=== PATIENT | female | born 1940 | race Caucasian/White ===

== ENCOUNTER 2022-03-08 11:04 | Outpatient (CLI) | payer MEDICARE, SELFPAY | END 2022-03-08 11:05 | disposition home or self-care (01) | LOC: NFLDREF 11:07 | PROVIDERS: PCP Internal Medicine; Visit Provider Internal Medicine | DX: E03.9 Hypothyroidism, unspecified (principal) | CPT/HCPCS: 84439; 84443 ==

== ENCOUNTER 2022-06-22 09:15 | Outpatient (RCR) | payer MEDICARE, SELFPAY ==
--- NOTE | 2022-06-02 15:25 | PT.OPEX ---
[facility] [place] [facility] PT [facility] Outpatient Eval Start: 06/01/22 15:36 Freq: Status: Active Protocol: Document 06/01/22 15:36 DEANNE (Rec: 06/01/22 15:38 DEANNE [id number]) E-signed By Tino Monahan DPT, MS Physical Therapy Outpatient Evaluation Insurance Information Recert Due Date 08/30/22 Insurance Name Medicare B,[facility] [facility] Medical Diagnosis Presence of artificial knee joint, bilateral. Treating Diagnosis R knee pain, imbalance, gait dysfunction, deconditioning, and B (R>L) LE weakness Subjective Subjective Pt is an 81 y.o. female with a PMH of dementia who presents to PT with c/o R medial knee pain following a fall in late March 2022. Describes falling onto her R knee then hitting the side of her head after getting up too quick to go to the bathroom due to lightheadedness. Hx of dizziness with a long hx of low BP. Lives in an assisted living apartment in [place] with an elevator to her [address]nd [place] apartment. Uses a cane on her R to help with balance but feels like her R knee gives way on her randomly throughout the day, especially when her legs are tired. PSH of B TKA in 2003 and L PAUL ~10 years ago. AGGR factors: standing, walking, carrying objects. ALLEV factors: rest. Pt?s daughter attended today?s session. Pain Comments 04/15 Current Work Status Retired Preferred Name Cristy Precautions Treatment Precautions/Contraindications Dementia Therapy Limitations/Systems Review Cognition Objective Functional Test Performed & Score LEFS: 20 Assessment Assessment/Impression Objectively pt displays imbalance, gait dysfunction, deconditioning, and B (R>L) LE weakness. Corrected pt to use her SPC on the L with significant improvement in quality of gait following. Medial R knee pain likely due to weakness, imbalance and gait compensations using her SPC on the R. Instructed pt in seated, standing and supine exercises with fatigue but good response to all exercises with fatigue following today? s session. She will benefit greatly from continued skilled therapy to address these limitations. Primary Functional Limitations Standing, walking, carrying objects. Plan of Care Rehabilitation Potential Excellent Physical Therapy Goals Short-term goals to be completed in 4 weeks: 1. Pt will display improved B LE strength as evidenced by performing >8 SLR of good quality to improve quality of gait. 2. Pt will be able to walk for >500 feet with a SPC with R knee pain <2/10 to safely attend medical appointments and amb in her apartment. Long-term goals to be completed in 10 weeks: 1. Pt will be independent and compliant with HEP 2. Pt will display improved B hip flex, ABD and ext strength of >4/5 to improve quality of gait. 3. Pt will display an improved TUG test with a SPC <13 sec to decrease falls risk. 4. Pt will report >50% improvement in LEFS questionnaire to significantly improve eve to daily activities. Coordination/Communication With Referral Source Treatment Plan/Direct Interventions Neuromuscular Re-ed, Therapeutic Exercises Frequency/Duration 1x per week for at least 6-10 visits, decreasing visit frequency as able. Patient Will Be Discharged From Therapy Completion of LTG(s),Skills Plateau,Independent w/HEP, Independently Progressing Evaluation Billing Untimed Code Treatment Minutes 28 Complexity Moderate Certification Information Initial Certification Date 06/01/22 Ending Certification Date 08/30/22 Provider Signature Shows Agreement With POC & Medical Necessity Physician Signature & Date Requested Please Sign/Date Here Physician Comment/Change : Physician NPI Number #
== END 2022-06-22 11:17 | disposition home or self-care (01) ==
PROVIDERS: PCP Internal Medicine; Visit Provider Physician Assistant Surgical
DX: M25.561 Pain in right knee (principal); R26.9 Unspecified abnormalities of gait and mobility; Z96.653 Presence of artificial knee joint, bilateral; Z51.89 Encounter for other specified aftercare
CPT/HCPCS: 97110; 97162

== ENCOUNTER 2023-12-29 17:45 | Emergency (ER) | payer MEDICARE, SELFPAY ==
--- NOTE | 2023-12-29 17:53 | ED.GENADULT ---
HPI - General Adult General Date Seen: 12/29/23 Chief complaint: Chest Pain Stated complaint: Dizziness Time Seen by Provider: 12/29/23 17:53 History of Present Illness HPI narrative: 83 yo F with a history of asthma, sleep apnea, elevated BMI, dementia, colon polyps, bilateral total knee replacements, dementia. She is brought to the ER today from her assisted living by EMS. She is accompanied by her daughter and son-in-law. History is limited because the patient has dementia and cannot recall the events that happened this afternoon. History is obtained predominantly from her daughter. She lives in an assisted living in [place]. She lives close to her daughter and they do talk on the phone fairly often. Daughter notes that she has had a couple of dizzy spells earlier this week, 1 on Monday, another on Monday but they were fairly mild. Further details are not not forthcoming. We do not really know what kind of dizziness she had, what brought it on, how long it lasted, or why it got better. It sounds like she did not have any known episodes of dizziness yesterday. As far as he know she was fine this morning. This afternoon she was with some a other folks at her assisted living and was playing cards. She began to complain of dizziness sometime late this afternoon. She had someone take her back to her room. She became nauseous and threw up (apparently nonbloody). She was able to call her daughter who came over to be with her. Daughter found that she had thrown up and noted that she was quite dizzy and quite unsteady. Daughter helped her into the shower to get her cleaned up from the vomiting but she was having trouble standing up in the shower. She was not really lightheaded and did not seem like she is going to pass out but more that she was just off balance. Daughter did not really see any facial droop. No obvious focal weakness. She did not report any focal numbness. She did not have slurred speech. She did not complain of chest pain or palpitations to her daughter. She vomited a couple of times. No report of abdominal pain. Now that she is here in the ER the patient says she is feeling better. She does not recall the previous dizzy spell. Related Data Home Medications ?Medication ?Instructions ?Recorded ?Confirmed acetaminophen 500 mg tablet 500 mg PO Q6H PRN 03/08/22 05/03/23 (Tylenol Extra Strength) multivitamin with minerals-folic 1 tab PO Q24H 03/08/22 05/03/23 acid 120 mcg chewable tablet (Centrum Adult 50 Plus Fresh-Fruity) vit C 250 mg-vit E 90 mg-zinc 40 1 tab PO BID 03/08/22 05/03/23 mg-copper 1 [id number] capsule (PreserVision AREDS-2) zafirlukast 20 mg tablet 20 mg PO BID 03/08/22 05/03/23 Previous Rx's ?Medication ?Instructions ?Recorded epinephrine 0.3 mg/0.3 mL 0.3 ml IM ONCE #2 ea 03/08/22 injection, auto-injector albuterol sulfate 90 mcg/actuation 2 inh inhalation Q6-8H PRN 03/17/22 aerosol inhaler (ProAir HFA) shortness of breath or wheezing #8.5 grams levothyroxine 100 mcg tablet 100 mcg PO QDAY #90 tabs 03/17/22 donepezil 5 mg tablet 5 mg PO QDAY #90 tabs 04/20/22 meclizine 12.5 mg tablet 12.5 mg PO TID PRN #10 tabs 12/29/23 Allergies Allergy/AdvReac Type Severity Reaction Status Date / Time ampicillin Allergy Verified 12/29/23 17:58 bee pollen Allergy Verified 12/29/23 17:58 sulfite Allergy Verified 12/29/23 17:58 Tetanus Vaccines and Toxoid Allergy Verified 12/29/23 17:58 flushot Allergy Uncoded 05/03/23 09:47 [facility] Medical History (Updated 12/29/23 @ 20:30 by Milton Hanna MD) POLST (Physician Orders for Life-Sustaining Treatment) ?Z78.9 - Other specified health status (ICD-10) Surgical History (Updated 06/01/22 @ 10:43 by Aubrey Smiley PA-C) History of hammer toe correction ?Z98.890 - Other specified postprocedural states (ICD-10) ?Z87.39 - Personal history of other diseases of the musculoskeletal system and connective tissue (ICD-10) History of bladder repair surgery ?Z98.890 - Other specified postprocedural states (ICD-10) History of appendectomy ?Z90.49 - Acquired absence of other specified parts of digestive tract (ICD-10) History of left inguinal hernia repair ?Z98.890 - Other specified postprocedural states (ICD-10) ?Z87.19 - Personal history of other diseases of the digestive system (ICD-10) History of tonsillectomy ?Z90.89 - Acquired absence of other organs (ICD-10) History of cataract surgery ?Z98.49 - Cataract extraction status, unspecified eye (ICD-10) History of total hysterectomy with bilateral salpingo-oophorectomy (BSO) ?Z90.710 - Acquired absence of both cervix and uterus (ICD-10) ?Z90.722 - Acquired absence of ovaries, bilateral (ICD-10) ?Z90.79 - Acquired absence of other genital organ(s) (ICD-10) History of total knee replacement ?Z96.659 - Presence of unspecified artificial knee joint (ICD-10) History of hip replacement ?Z96.649 - Presence of unspecified artificial hip joint (ICD-10) Family History Mother Diabetes Father Parkinson's disease COPD (chronic obstructive pulmonary disease) Daughter Systemic lupus erythematosus Other Family history of malignant neoplasm of colon in first degree relative diagnosed when younger than 60 years of age Social History Smoking Status: Never smoker Little interest or pleasure in doing things: not at all Feeling down, depressed, or hopeless: not at all Exam Narrative: Exam Narrative: Constitutional: Appears well-developed and well-nourished. Alert. Conversant and polite. She complains of my cold hands. She has dementia so cannot provide history. Non toxic. HENT: Head: Atraumatic. Nose: Nose normal. Mouth/Throat: Oral mucosa is clear and moist. no trismus. Pharynx normal. Tonsils symmetric. No tonsillar enlargement, erythema, or exudate. Eyes: Conjunctivae normal. EOM normal. Pupils equal, round, and reactive to light. No scleral icterus. No nystagmus. Neck: Normal range of motion. Neck supple. No tracheal deviation present. Cardiovascular: Normal rate, regular rhythm. No gallop. No friction rub. No murmur heard. Symmetric radial artery pulses Pulmonary/Chest: Effort normal. No stridor. No respiratory distress. No wheezes. No rales. No rhonchi . No tenderness. Abdominal: Soft. Bowel sounds normal. No distension. No mass. No tenderness. No rebound. No guarding. Musculoskeletal: RUE: Normal range of motion. No tenderness. No deformity LUE: Normal range of motion. No tenderness. No deformity RLE: Normal range of motion. No edema. No tenderness. No deformity LLE: Normal range of motion. No edema. No tenderness. No deformity Neurological: Alert and oriented to person, place, and at baseline.. Normal strength. CN II-VII intact. No sensory deficit. GCS eye subscore is 4. GCS verbal subscore is 5. GCS motor subscore is 6. Normal coordination Mental status normal. Attention normal. Alert and oriented x3. GCS 15. Memory normal. Speech fluent. Cognition normal. Cranial Nerves intact II-XII except I did not formally test gag or visual acuity. EOMI. Palate elevates symmetrically and tongue protrudes in the midline. Strength: 5/5 trapezius on the right and left 5/5 deltoid on the right and left 5/5 biceps on the right and left 5/5 triceps on the right and left 5/5 multicraft operator on the right and left 5/5 thumb opposition on the right and left 5/5 finger abduction on the right and left 5/5 hip flexors (L3) on the right and left 5/5 quadriceps (L4) on the right and left 5/5 tibialis anterior on the right and left 5/5 EHL (L5) on the right and left 5/5 gastrocnemius (S1) on the right and left 5/5 hamstring on the right and left Sensation intact to light touch in both upper extremities (C4-T1) Sensation intact to light touch in Both lower extremities (L4-S1). Finger to nose and coordination normal. Gait normal. Skin: Skin is warm and dry. No rash noted. No pallor. Normal capillary refill. Psychiatric: Normal mood. Normal affect. Const: Vital Signs, click to edit/add: Vital Signs - 24 hr 12/29/23 17:55 Temperature 96.4 F L Pulse Rate [Right Pulse Oximeter] 64 Respiratory Rate 18 Blood Pressure [Ri ght Upper Arm] 140/99 H Pulse Oximetry 97 Oxygen Delivery Me thod Room Air Course Vital Signs Vital signs: Initial Vital Signs Respiratory Effort Normal 12/29/23 17:53 Respiratory Depth Normal 12/29/23 17:53 Respiratory Pattern Normal 12/29/23 17:53 Vital Signs Temperature 96.4 F L 12/29/23 17:55 Pulse Rate 64 12/29/23 17:55 Respiratory Rate 18 12/29/23 17:55 Blood Pressure 140/99 H 12/29/23 17:55 Pulse Oximetry 97 12/29/23 17:55 Oxygen Delivery Method Room Air 12/29/23 17:55 Temperature 96.4 F L 12/29/23 17:55 Pulse Rate 64 12/29/23 17:55 Respiratory Rate 18 12/29/23 17:55 Blood Pressure 140/99 H 12/29/23 17:55 Pulse Oximetry 97 12/29/23 17:55 Oxygen Delivery Method Room Air 12/29/23 17:55 Medical Decision Making MDM Narrative Medical decision making narrative: Pleasant [age]-year-old female with dementia brought to the ER today by EMS from her assisted living. She is accompanied by her daughter who provides her history. She has been having episodes of dizziness for the past couple of days and had a fairly intense episode of dizziness lasting several hours this afternoon but is now improved upon arrival to the ER. Differential for her dizziness is quite broad. At this point would favor that this was probably an episode of vertigo. However she has not have any ongoing nystagmus or any obvious focal deficits at this time. Given her age and medical comorbidities we did obtain a noncontrast head CT scan to look for any obvious signs of intracranial hemorrhage or stroke. CT is normal. Certainly MRI would be more sensitive to look for cerebellar or brainstem ischemia. However MRI is not available at this time in the ER in [place]. With no active vertigo symptoms I do not think she needs transfer for emergent MRI right now. Differential would also include lightheadedness. It is possible she had an arrhythmia at home, but she is currently in sinus rhythm in the ER. EKG shows sinus rhythm and no arrhythmia she had not been having any chest pain. Screening EKG to look for ischemia is undetectable. She did have some vomiting associated with her dizziness. She is not having any abdominal pain or tenderness on her exam here in the ER. However consider intra-abdominal pathology. Laboratory workup including LFTs, lipase is normal. Kidney function normal. Electrolytes normal. Urinalysis is normal. Sodium, potassium, electrolytes are normal. Blood sugar normal. Venous lactic acid is borderline elevated at 2.0. She is not febrile. No evidence for infection or sepsis. She received IV fluid bolus 500 mils here in the ER (limited due to current national IV fluids shortage). Hemoglobin is normal. No signs of anemia. Disposition is somewhat difficult. At this point she is asymptomatic. Daughter is concerned with her recurrent episodes of dizziness that she might get dizzy overnight and which could lead to a fall since she lives in an assisted living does not really have adequate supervision. We discussed possible hospitalization. For her part the patient does not want to be hospitalized. Concerned about hospitalization would be that since she has dementia she could develop sundowning and own from area in by minute which would lead to distress for the patient as well as agitation and need for chemical sedation which could cause other side effects. Ultimately the plan we came up with his that will discharge the patient back to her normal living environment and her daughter will stay with her tonight to help assist. This will help give her some measure of safety and protection. However if she has more symptoms or has any concerns, her daughter will help her come back to the ER immediately. Will try a short course of meclizine that she can use as needed for episodes of dizziness. Discussed that we suspect this is vertigo but that the diagnosis is difficult to confirm in this situation, especially with the limitations of the patient's dementia to fully sauce out how the symptoms feel. Patient and her daughter and son-in-law are comfortable plan of care. Lab Data Labs: Lab Results 12/29/23 12/29/23 Range/Units 18:50 19:27 WBC 7.17 (4.50-11.00) K/uL RBC 4.59 (4.00-5.20) m/uL Hgb 14.2 (12.0-16.0) gm/dL Hct 43.6 (33.0-51.0) % MCV 95 (80-100) fL MCH 31 (26-34) pg MCHC 33 (32-36) gm/dL RDW Coeff of Jt 13.2 (11.5-15.5) % Plt Count 228 (140-440) K/uL Neut % (Auto) 73.6 H (42.0-72.0) % Lymph % (Auto) 19.4 L (20-44) % Rich % (Auto) 5.6 (0.0-11.0) % Eos % (Auto) 0.1 (0.0-7.0) % Baso % (Auto) 0.6 (0.0-3.0) % Neut # (Auto) 5.30 (1.7-7.0) K/uL Lymph # (Auto) 1.40 (0.90-2.90) K/uL Rich # (Auto) 0.40 (0.00-0.90) K/UL Eos # (Auto) 0.01 (0.00-0.50) K/uL Baso # (Auto) 0.04 (0.00-0.30) K/uL Abs Immat Gran (auto) 0.05 (0.00-0.30) K/uL Imm/Tot Granulo (auto) 0.7 % Sodium 136 (135-149) mmol/L Potassium 3.6 (3.6-5.1) mmol/L Chloride 98 (96-114) mmol/L Carbon Dioxide 29 (20-32) mmol/L Anion Gap 9 (7-15) mEq/L BUN 18 (7-30) mg/dL Creatinine 0.7 (0.5-1.5) mg/dL Estimated Creat Clear 37.68 Estimated GFR 85 ml/min Glucose 132 H (60-115) mg/dL Lactate 2.0 H (0.5-1.9) mmol/L Calcium 9.4 (8.4-10.6) mg/dL Total Bilirubin 0.4 (0.1-1.5) mg/dL AST 36 H (12-35) U/L ALT 25 (4-35) U/L Alkaline Phosphatase 72 (40-150) U/L Troponin I < 0.01 L (0.01-0.04) ng/mL Total Protein 7.9 (6.0-8.3) g/dL Albumin 4.5 (3.3-5.0) g/dL Lipase 83 (23-300) U/L Urine Color Yellow (Yellow) Urine Appearance Clear (Clear) Urine pH 7.5 (5.0-8.5) Ur Specific [place] 1.015 (1.000-1.030) Urine Protein Negative (Negative) Urine Glucose (UA) Negative (Negative) Urine Ketones Negative (Negative) Urine Blood Negative (Negative) Urine Nitrite Negative (Negative) Urine Bilirubin Negative (Negative) Urine Urobilinogen 0.2 (0.2-1.0) Ur Leukocyte Esterase Negative (Negative) Urine RBC 0-2 (0-2) Urine WBC 0-2 (0-5) Ur Squamous Epith Cells None (None-Few) Urine Bacteria None (None) Imaging Data CT scan - head: Attestation: I have reviewed the pertinent imaging results. Radiologist's impression: IMPRESSION: No acute abnormality. ECG Data Attestation: I personally reviewed and interpreted this ECG as follows: Interpretation: Normal sinus rhythm Rate: 68 WI: 188 QRS axis: Normal axis. No pathologic Q-waves. ST segment/T wave: Nonspecific T-wave flattening. No ST segment elevation or depression. QTc: 489 Discharge Plan Discharge Clinical Impression: Vertigo Patient Disposition: Home w/ Parent or Adult Condition: Stable Instructions: Vertigo (DC), Dizziness (ED) Additional Instructions: As we discussed, please come back to the ER right away if you have any concerns especially if she has more episodes of significant unsteadiness, dizziness, vomiting, or if she has any other new symptoms such as chest pain, abdominal pain, or trouble breathing. Use the medication, Antivert, if needed to help treat if she has episodes of dizziness. Continue on her other regular medications. Please recheck with her regular doctor in 2-3 days, or come back to the ER right away if she has any worsening symptoms or you have any concerns. Activity Level: No Restrictions Discharge Diet: Regular Prescriptions: New meclizine 12.5 mg tablet 12.5 mg PO TID PRNQty: 10 0RF No Action zafirlukast 20 mg tablet 20 mg PO BID Rx Instructions: must be taken on empty stomach, at least 1 hr before or 2 hrs after a meal/food Centrum Adult 50 Fresh-Fruity 120 mcg tablet,chewable 1 tab PO Q24H PreserVision AREDS-2 250-90-40-1 mg capsule 1 tab PO BID acetaminophen [Tylenol Extra Strength] 500 mg tablet 500 mg PO Q6H PRN epinephrine 0.3 mg/0.3 mL auto-injector 0.3 ml IM ONCE Qty: 2 1RF Rx Instructions: as a single dose; may repeat once albuterol sulfate [ProAir HFA] 90 mcg/actuation HFA aerosol inhaler 2 inh inhalation Q6-8H PRN (Reason: shortness of breath or wheezing) Qty: 8.5 5RF levothyroxine 100 mcg tablet 100 mcg PO QDAY Qty: 90 3RF donepezil 5 mg tablet 5 mg PO QDAY Qty: 90 3RF Follow Up/Referrals: Isabel Ghosh MD [Staff Physician] - Stand Alone Forms: [employer] Info Instructions
[2023-12-29 17:55] VITALS: BP 140/99; PULSE 64; RESP 18; TEMP 35.8; O2SAT 97; BMI 29.1
--- NOTE | 2023-12-29 18:13 | CRLHL7_ITS ---
For Patients: As a result of the Century Cures Act, medical imaging exams and procedure reports are released immediately into your electronic medical record. You may view this report before your referring provider. If you have questions, please contact your health care provider. INDICATION: Dizziness and vomiting. TECHNIQUE: Axial noncontrast CT cuts were performed from skull base to the vertex. FINDINGS: There is moderate cerebral loss. There is no intracranial mass, hemorrhage, infarction or contusion. There is no midline shift or transtentorial herniation. The calvarium is intact. The visualized paranasal sinuses and orbits appear normal. IMPRESSION: No acute abnormality. Please note that all CT scans at this facility use dose modulation, iterative reconstruction, and/or weight-based dosing when appropriate to reduce radiation dose to as low as reasonably achievable. Dictated by Wilbur Chavez MD @ 12/29/2023 6:57:19 PM (Electronically Signed)
[2023-12-29 18:58] LABS: Basophils Absolute Auto 0.04 K/uL (0.00-0.30); Basophils Percent Auto 0.6 % (0.0-3.0); Eosinophils Absolute Auto 0.01 K/uL (0.00-0.50); Eosinophils Percent Auto 0.1 % (0.0-7.0); Hematocrit 43.6 % (33.0-51.0); Hemoglobin* 14.2 gm/dL (12.0-16.0); Immature Granulocytes Abs Auto 0.05 K/uL (0.00-0.30); Immature Granulocytes Pct Auto 0.7 %; Lymphocytes Percent Auto 19.4 % (20-44); Mean Corpuscular HGB Conc 33 gm/dL (32-36); Mean Corpuscular Hemoglobin 31 pg (26-34); Mean Corpuscular Volume 95 fL (80-100); Monocytes Percent Auto 5.6 % (0.0-11.0); Neutrophils Percent Auto 73.6 % (42.0-72.0); Platelet Count* 228 K/uL (140-440); RDW Coefficient of Variation % 13.2 % (11.5-15.5); Red Blood Count 4.59 m/uL (4.00-5.20); White Blood Count* 7.17 K/uL (4.50-11.00)
[2023-12-29 19:06] LABS: Slide Review Reflex No
[2023-12-29 19:27] LABS: Chloride* 98 mmol/L (96-114)
[2023-12-29 19:28] LABS: Albumin* 4.5 g/dL (3.3-5.0); Potassium* 3.6 mmol/L (3.6-5.1); Sodium* 136 mmol/L (135-149)
[2023-12-29 19:31] LABS: Alanine Aminotransferase* 25 U/L (4-35); Alkaline Phosphatase* 72 U/L (40-150); Anion Gap 9 mEq/L (7-15); Aspartate Amino Transferase* 36 U/L (12-35); Bilirubin Total* 0.4 mg/dL (0.1-1.5); Blood Urea Nitrogen* 18 mg/dL (7-30); Calcium* 9.4 mg/dL (8.4-10.6); Carbon Dioxide* 29 mmol/L (20-32); Creatinine* 0.7 mg/dL (0.5-1.5); Est. Creatinine Clearance* 37.68; Estimated Glomerular Filt Rate 85 ml/min; Glucose* 132 mg/dL (60-115); Total Protein* 7.9 g/dL (6.0-8.3)
[2023-12-29 19:32] LABS: Lipase* 83 U/L (23-300)
[2023-12-29 19:36] LABS: Appearance Urine Clear (Clear); Bilirubin Urine Negative (Negative); Blood Urine Negative (Negative); Color Urine Yellow (Yellow); Glucose Urine Negative (Negative); Ketones Urine Negative (Negative); Leukocyte Esterase Urine Negative (Negative); Nitrite Urine Negative (Negative); Protein Urine Negative (Negative); Specific Gravity Urine 1.015 (1.000-1.030); Urobilinogen Urine 0.2 (0.2-1.0); pH Urine 7.5 (5.0-8.5)
[2023-12-29 19:43] LABS: Troponin I* < 0.01 ng/mL (0.01-0.04)
[2023-12-29 19:44] LABS: RBC Urine 0-2 (0-2); WBC Urine 0-2 (0-5)
--- NOTE | 2024-01-01 12:27 | ED.NURSE ---
Pt discharge medication Meclizine changed from [facility], to [facility] in [place].
== END 2023-12-29 20:43 | disposition home or self-care (01) ==
PROVIDERS: Emergency Provider Emergency Medicine; Visit Provider Emergency Medicine
DX: R42 Dizziness and giddiness (principal)
CPT/HCPCS: 36415; 70450; 80053; 81001; 83605; 83690; 84484; 85025; 93005; 99284

== ENCOUNTER 2023-12-30 17:05 | Outpatient (CLI) | payer MEDICARE, SELFPAY | END 2023-12-30 17:06 | disposition home or self-care (01) | LOC: AMB 01-04 13:33 | PROVIDERS: Visit Provider Family Medicine | DX: R42 Dizziness and giddiness (principal); R11.2 Nausea with vomiting, unspecified | CPT/HCPCS: A0425; A0427 ==

== ENCOUNTER 2024-09-27 11:14 | Emergency (ER) | payer MEDICARE, SELFPAY ==
--- OUTSIDE RECORDS SUMMARY | 2024-09-27 11:15 | XMS_ITS ---
Author Name Auto Generated, Auto Generated Organization [employer] Functional Status No Results Mental Status No Results Allergies and Intolerances No Known Allergies Problems Active Concerns * Impacted cerumen of right ear* Code: [id number] * Start Date: MonJuly 28 09:15:00 EDT 2024 * End Date: * Text: Reason for Referral
[2024-09-27 11:48] VITALS: BP 129/64; PULSE 70; RESP 18; TEMP 36.3; O2SAT 95; BMI 43.9
--- NOTE | 2024-09-27 11:50 | CRLHL7_ITS ---
For Patients: As a result of the Century Cures Act, medical imaging exams and procedure reports are released immediately into your electronic medical record. You may view this report before your referring provider. If you have questions, please contact your health care provider. INDICATION: FALL IN SHOWER, HIT HEAD. (Sic) COMPARISON: 12/29/2023 TECHNIQUE: CT of the head without intravenous contrast. Please note that all CT scans at this facility use dose modulation, iterative reconstruction, and/or weight-based dosing when appropriate to reduce radiation dose to as low as reasonably achievable. FINDINGS: No acute traumatic injury is identified. No acute infarct. No intracranial mass or mass effect. No hydrocephalus. No intracranial hemorrhage. Redemonstration of chronic bilateral internal capsular lacunar infarcts and clustered lucencies at the base of the left lentiform nucleus consistent with chronic lacunar infarcts or dilated perivascular spaces. RapidAI ASPECTS Score: Not performed/available at the time of dictation. Intact skull base and cranial vault. Visualized orbits are without significant incidental findings. Visualized paranasal sinuses and mastoid air cells are clear. Unremarkable soft tissues. IMPRESSION: 1. No acute traumatic injury is identified. 2. No significant interval findings. 3. Additional findings as above. Please note that all CT scans at this facility use dose modulation, iterative reconstruction, and/or weight-based dosing when appropriate to reduce radiation dose to as low as reasonably achievable. Dictated by Figueroa Tucker MD @ 09/27/2024 12:21:19 PM (Electronically Signed)
--- OUTSIDE RECORDS SUMMARY | 2024-09-27 12:14 | XMS_ITS ---
Author Name Auto Generated, Auto Generated Organization [employer] Functional Status No Results Mental Status No Results Allergies and Intolerances No Known Allergies Problems Active Concerns * Impacted cerumen of right ear* Code: [id number] * Start Date: MonJuly 28 09:15:00 EDT 2024 * End Date: * Text: Reason for Referral
--- NOTE | 2024-09-27 12:27 | ED_ITS ---
HPI - Fall General Chief Complaint: Fall/Minor Trauma Stated Complaint: Fell, hit head Time Seen by Provider: 09/27/24 11:52 History of Present Illness HPI Narrative: Patient is a 84-year-old woman who lives in memory care at the [facility]. She unfortunately fell in the shower today striking her head. She has approximately 3 in laceration on the posterior lateral scalp on the right. She had no loss of consciousness. No fevers no chills no night sweats. She is back at baseline. CT of the head done upon arrival is unremarkable. No other symptoms noted or history available. 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 Previous Rx's ?Medication ?Instructions ?Recorded epinephrine 0.3 mg/0.3 mL 0.3 ml IM ONCE #2 ea 3 injection, auto-injector albuterol sulfate 90 mcg/actuation 2 inh inhalation Q6 -8H PRN 03/17/22 aerosol inhaler (ProAir HFA) shortness of breath or wh eezing #8.5 grams levothyroxine 100 mcg tablet 100 mcg PO QDAY #90 tabs 03/17/22 donepezil 5 mg tablet 5 mg PO QDAY #90 tabs meclizine 12.5 mg tablet 12.5 mg PO TID PRN #10 tabs 12/29/23 Allergies Allergy/AdvReac Type Severity Reaction Status Date / Time ampicillin Allergy Verified 05/15/24 10:30 bee pollen Allergy Verified 05/15/24 10:30 sulfite Allergy Verified 05/15/24 10:30 Tetanus Vaccines and Toxoid Allergy Verified 05/15/24 10:30 flushot Allergy Uncoded 05/15/24 10:30 Review of Systems Status of ROS: Reports: 10 or more systems reviewed and unremarkable except as noted in History and below [facility] Medical History POLST (Physician Orders for Life-Sustaining Treatment) ?Z78.9 - Other specified health status (ICD-10) Surgical History History of hammer toe correction ?Z98.890 - Other specified postprocedural states (ICD-10) ?Z87.39 - Personal history of other diseases of the musculoskeletal system and connective tissue (ICD-10) History of bladder repair surgery ?Z98.890 - Other specified postprocedural states (ICD-10) History of appendectomy ?Z90.49 - Acquired absence of other specified parts of digestive tract (ICD- 10) History of left inguinal hernia repair ?Z98.890 - Other specified postprocedural states (ICD-10) ?Z87.19 - Personal history of other diseases of the digestive system (ICD-10) History of tonsillectomy ?Z90.89 - Acquired absence of other organs (ICD-10) History of cataract surgery ?Z98.49 - Cataract extraction status, unspecified eye (ICD-10) History of total hysterectomy with bilateral salpingo-oophorectomy (BSO) ?Z90.710 - Acquired absence of both cervix and uterus (ICD-10) ?Z90.722 - Acquired absence of ovaries, bilateral (ICD-10) ?Z90.79 - Acquired absence of other genital organ(s) (ICD-10) History of total knee replacement ?Z96.659 - Presence of unspecified artificial knee joint (ICD-10) History of hip replacement ?Z96.649 - Presence of unspecified artificial hip joint (ICD-10) Family History Mother Diabetes Father Parkinson's disease COPD (chronic obstructive pulmonary disease) Daughter Systemic lupus erythematosus Other Family history of malignant neoplasm of colon in first degree relative diagnosed when younger than 60 years of age Social History Smoking Status: Never smoker Exam Narrative: Exam Narrative: EXAM GENERAL: Patient appears comfortable and well. EYES: No scleral icterus. ENT: Tympanic membranes and oropharynx normal. THYROID: no thyroid nodules or thyromegaly. LYMPH: No supraclavicular or cervical lymphadenopathy. SKIN: Well-approximated laceration right lateral scalp 3 in in length. No other acute abnormalities. EXT: No dependent lower extremity pedal edema. HEART: Regular rate and rhythm with no murmurs, rubs, or gallops. LUNGS: Clear to auscultation bilaterally with no crackles or wheezes. ABD: Soft, non tender, non distended. PSYCH: Good eye contact, speech is not pressured. Neurologic cranial nerves 2-12 grossly intact no focal defects. Const: Vital Signs, click to edit/add: Vital Signs - 24 hr 09/27/24 11:48 Temperature 97.4 F L Pulse Rate [Pulse Oximeter] 70 Respiratory Rate 18 Blood Pressure [Ri t Upper Arm] 129/64 Pulse Oximetry 95 Oxygen Delivery Me thod Room Air Course Vital Signs Vital signs: Initial Vital Signs Temperature 97.4 F L 09/27/24 11:48 Temperature Source Temporal Artery Scan 09/27/24 11:48 Pulse Rate 70 09/27/24 11:48 Respiratory Rate 18 09/27/24 11:48 Blood Pressure 129/64 09/27/24 11:48 Blood Pressure Mean 85 09/27/24 11:48 Pulse Oximetry 95 09/27/24 11:48 Oxygen Delivery Method Room Air 09/27/24 11:48 Vital Signs Temperature 97.4 F L 09/27/24 11:48 Pulse Rate 70 09/27/24 11:48 Respiratory Rate 18 09/27/24 11:48 Blood Pressure 129/64 09/27/24 11:48 Pulse Oximetry 95 09/27/24 11:48 Oxygen Delivery Method Room Air 09/27/24 11:48 Temperature 97.4 F L 09/27/24 11:48 Pulse Rate 70 09/27/24 11:48 Respiratory Rate 18 09/27/24 11:48 Blood Pressure 129/64 09/27/24 11:48 Pulse Oximetry 95 09/27/24 11:48 Oxygen Delivery Method Room Air 09/27/24 11:48 MDM - Fall MDM Narrative Medical decision making narrative: Patient is 84-year-old woman who fell in the shower. She does not appear to be significantly injured but does have a small laceration as described above of the posterior occiput. I did clean the wound and closed the defect with 4 abeba. She was instructed on wound care. Head CT is unremarkable. No believe any further workup is needed. Patient will be discharged back to assisted living. Discharge Plan Discharge Clinical Impression: Laceration of head Patient Disposition: Home, Self-Care Instructions: Laceration (ED) Additional Instructions: Abeba removed in 10 days Symptomatic treatment Continue current medications Follow-up with your doctor as needed. Activity Level: No Restrictions Discharge Diet: Regular Prescriptions: No Action zafirlukast 20 mg tablet 20 mg PO BID Rx Instructions: must be taken on empty stomach, at least 1 hr before or 2 hrs after a meal/food Centrum Adult 50 Fresh-Fruity 120 mcg tablet,chewable 1 tab PO Q24H PreserVision AREDS-2 250-90-40-1 mg capsule 1 tab PO BID acetaminophen [Tylenol Extra Strength] 500 mg tablet 500 mg PO Q6H PRN epinephrine 0.3 mg/0.3 mL auto-injector 0.3 ml IM ONCE Qty: 2 1RF Rx Instructions: as a single dose; may repeat once meclizine 12.5 mg tablet 12.5 mg PO TID PRNQty: 10 0RF furosemide 20 mg tablet 80 mg PO DAILY levothyroxine 112 mcg tablet 112 mcg PO DAILY albuterol sulfate [ProAir HFA] 90 mcg/actuation HFA aerosol inhaler 2 inh inhalation Q6-8H PRN (Reason: shortness of breath or wheezing) Qty: 8.5 5RF levothyroxine 100 mcg tablet 100 mcg PO QDAY Qty: 90 3RF donepezil 5 mg tablet 5 mg PO QDAY Qty: 90 3RF Follow Up/Referrals: Provider,Not a Local [Primary Care Provider, Family Practice] [facility]: [facility] Info Instructions
== END 2024-09-27 13:10 | disposition home or self-care (01) ==
PROVIDERS: Emergency Provider Internal Medicine
DX: S01.01XA Laceration without foreign body of scalp, initial encounter (principal); W18.2XXA Fall in (into) shower or empty bathtub, initial encounter
CPT/HCPCS: 12001; 70450; 99283